=== PATIENT | female | born 1990 | race Two or more races ===

== ENCOUNTER 2025-09-03 22:23 | Emergency (ER) | payer BC, SELFPAY ==
[2025-09-03 22:24] VITALS: BMI 38.7
[2025-09-04 00:12] VITALS: BP 117/75; PULSE 88; RESP 19; TEMP 37; O2SAT 99
--- NOTE | 2025-09-04 00:41 | PD.EDEYE ---
ED Eye Problem RME/HPI General Chief complaint: Eye Problems Stated complaint: LEFT EYE INJURY Time Seen by Provider: 09/04/25 00:26 Source: patient Arrival date/time: 09/03/25 22:23 Mode of arrival: ambulatory Limitations: no limitations RME / HPI RME / HPI Narrative: This patient is a pleasant but morbidly obese 75-year-old female who arrives to the ED for evaluation of left eye injury concerns. Patient states she was taking off her newly purchased sure when the tag struck her in the lateral aspect of her left eye. Patient had some redness in that eye and was concerned about bleeding issues. No active or exposed blood was appreciated. No change in vision. Related Data Allergies Allergy/AdvReac Type Severity Reaction Status Date / Time No Known Allergies Allergy Verified 09/03/25 22:24 Review of Systems Review of Systems Systems Reviewed: All systems reviewed, normal except as documented Past Medical History Social History SMOKING STATUS: Never smoker ED Exam Narrative Physical exam: Patient was not in distress at time of evaluation. General Limitations: Present no limitations General appearance: Present alert and in no apparent distress Head Head exam: Present atraumatic Eye Eye exam: Present PERRL (Patient displays some mild lateral left eye scleral injection and signs of a mild to moderate subconjunctival hemorrhage. No change in vision.) and EOMI ENT ENT exam: Present normal exam, normal oropharynx and mucous membranes moist Neck Neck exam: Present normal inspection, full ROM and trachea midline Chest Chest inspection: Present normal inspection and symmetric chest wall rise Respiratory Respiratory exam: Present normal lung sounds bilaterally Cardiovascular Cardiovascular exam: Present regular rate, normal rhythm and normal heart sounds Abdominal Exam Abdominal exam: Present soft and normal bowel sounds Extremities Exam Extremities exam: Present normal inspection and full ROM Back Exam Back exam: Present normal inspection and full ROM Neurological Exam Neurological exam: Present alert, oriented X3 and CN II-XII intact Psychiatric Psychiatric exam: Present normal affect and normal mood Skin Skin exam: Present warm, dry, intact and normal color Course Quality Measures none Vital Signs Vital signs: Vital Signs Temperature 98.6 F 09/04/25 00:12 Pulse Rate 88 09/04/25 00:12 Respiratory Rate 19 09/04/25 00:12 Blood Pressure 117/75 09/04/25 00:12 Pulse Oximetry (%) 99 09/04/25 00:12 Oxygen Delivery Method Room Air 09/04/25 00:12 As noted above Eye MDM Narrative MDM Narrative:: Advised patient she suffered a mild subconjunctival hemorrhage. Explained the sequelae of that injury with the patient. Advised it would heal in the next week to 10 days. Patient data External records reviewed:: [facility] previous records Clinical information provided by:: patient Social determinants that could affect healthcare access:: none Patient has the following chronic illnesses:: None How is presenting disease/condition affected by chronic disease/condition?: no chronic disease Evaluation data The following diagnostics were reviewed and interpreted by me:: other (specify) Lab and/or radiology exams considered but not ordered:: None Interpretation Summary: None Medications / Prescriptions Medications or Prescriptions considered but not ordered:: None Medication administrations:: None Consultations Consultation(s) initiated? (list below): No Diagnosis Eye Problem Differential Diagnosis: subconjunctival hemorrhage Most likely diagnosis given after review of the tests above:: Subconjunctival hemorrhage Admission Indicated Admission indicated?: not indicated Explain why admission is indicated or not indicated:: Unwarranted Admission Request Was there a request for admission?: No Disposition Plan Disposition Plan: Discharge Discharge Attestation Discharge Attestation: The patient and all family members were given an opportunity to ask questions and understood the discharge instructions. Discharge instructions specifically effects, indications for sooner follow up or return to the emergency department, and the expected course of current diagnosis. Patient condition: Stable Discharge Plan Plan Patient Disposition: HOME (Self Care) Problem List Clinical Impression: Subconjunctival hemorrhage Patient/Caregiver Discharge Instructions Education Materials: ED Subconjunctival Hemorrhage Print Language: Divehi Stand Alone Forms: Kiki Award Info., Patient Portal Info Letter
== END 2025-09-04 00:52 | disposition home or self-care (01) ==
PROVIDERS: Emergency Provider Emergency Medicine
DX: H11.32 Conjunctival hemorrhage, left eye (principal)
CPT/HCPCS: 99281